=== PATIENT | female | born 2000 | race Caucasian/White ===

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

== ENCOUNTER 2021-01-21 14:18 | Emergency (ER) | payer BC, OTHER | END 2021-01-21 14:34 | disposition home or self-care (01) | LOC: JVIRT 14:18 | DX: Z11.52 Encounter for screening for COVID-19 (principal) | CPT/HCPCS: C9803; G2251-GT; U0003 ==